=== PATIENT | male | born 1965 | race Caucasian/White ===

== ENCOUNTER 2018-04-26 11:15 | Day surgery (SDC) | payer BC ==
[2018-04-26] VITALS (10 sets, daily range): BP systolic 122–137; BP diastolic 82–91
[~2018-04-26] VITALS: Ht 182.9 cm; Wt 104.3 kg
--- NOTE | 2018-04-26 07:16 | Pre-Procedure Note/Attestation ---
Pre-Procedure Note/Attestation Complete Prior to Procedure Planned Procedure: right Procedure Narrative: knee arthroscopy medial menisectomy Indications for Procedure Pre-Operative Diagnosis: right knee medial meiscus tear Attestation I attest that I discussed the nature of the procedure; its benefits; risks and complications; and alternatives (and the risks and benefits of such alternatives ), prior to the procedure, with the patient (or the patient's legal shipping services sales representative). I attest that, if there was a reasonable possibility of needing a blood transfusion, the patient (or the patient's legal shipping services sales representative) was given the [facility] standardized written summary, pursuant to the [place] Blood Safety Act ([place] Health and Safety Code # 1645, as amended). I attest that I re-evaluated the patient just prior to the surgery and that there has been no change in the patient's H&P, except as documented below: Jacky Banks MD Apr 26, 2018 07:16
--- NOTE | 2018-04-26 07:16 | Operative Note - PDOC ---
Operative Note Operative Note Pre-op Diagnosis: right knee medial meiscus tear Procedure: see op report Post-op Diagnosis: same as pre-op plus Operative Findings: consistent w/pre-op dx studies Anesthesia: general Specimen: none Complications: none Condition: stable Estimated Blood Loss: none Implant(s) used?: No Jacky Banks MD Apr 26, 2018 07:16
[~2018-04-26 11:15] MED LIST: ALLEGRA-D 24 H1 EACH PO; ALLOPURINOL100 M1 ORAL; D5 1/2NS 1,000 ML IV SCH; HYDROmorphone 1mg/ml Carpuject SUBQ PRN; Norco 5mg/325mg tab ORAL PRN; Tylenol #3 tab (300mg/30mg) ORAL PRN; ceFAZolin 1gm in D5W 55ml IVP ONE; celeBREX 200mg Cap **SURGERY PATIENTS ONLY ORAL ONE; oxyCONTIN 20mg tab ORAL ONE
[2018-04-26] MEDS ORDERED: OXYCODONE-ACET1 EAC5 ORAL (11:37)
[2018-04-26] MEDS ORDERED: COLCRYS0.6 M1 PO (11:38)
[2018-04-26] MEDS ORDERED: tylenol PM PO (11:39)
[2018-04-26] MEDS ORDERED: oxyCONTIN 20mg tab ORAL ONE (11:55)
[2018-04-26] MEDS ORDERED: celeBREX 200mg Cap **SURGERY PATIENTS ONLY ORAL ONE (11:55)
[2018-04-26] MEDS ORDERED: Kenalog-40 1ml Vial ONE (12:35)
[2018-04-26] MEDS ORDERED: EPINEPHrine 1mg/1ml Amp ONE (12:35)
[2018-04-26] MEDS ORDERED: Morphine Sulfate PF 10 ML ONE (12:35)
[2018-04-26] MEDS ORDERED: Lidocaine 1% 10mg/ml/Epi 0.005mg/ml 30ml vial INJ ONE (12:36)
[2018-04-26] MEDS ORDERED: Bupivacaine w/Epi 0.25% 30ml Vial INJ ONE (12:36)
[2018-04-26] MEDS ORDERED: Ketorolac 30mg Inj ONE (12:36)
[2018-04-26] MEDS ORDERED: fentaNYL 100 mcg/2 mL IV ONE (12:48)
[2018-04-26] MEDS ORDERED: LR 1000ml ONE (13:00)
[2018-04-26] MEDS ORDERED: NS Irrig 4000ml IRRIG ONE (13:00)
[2018-04-26] MEDS ORDERED: Propofol 200mg/20ml IV ONE (13:20)
[2018-04-26] MEDS ORDERED: Lidocaine 1% MPF 10mg/ml 5ml ONE (13:20)
[2018-04-26] MEDS ORDERED: Metoclopramide 10mg/2ml Inj ONE (13:20)
[2018-04-26] MEDS: Bupivacaine 0.5% Inj 30 ml vial INJ ONE ×2 (13:26→13:27)
[2018-04-26] MEDS ORDERED: Ketorolac 30mg Inj IV PRN (13:45)
[2018-04-26] MEDS ORDERED: Metoclopramide 10mg/2ml Inj IVP PRN (13:45)
[2018-04-26] MEDS ORDERED: fentaNYL 100 mcg/2 mL IV PRN (13:45)
--- NOTE | 2018-04-26 13:46 | Immediate Post-Op Evaluation ---
Immediate Post-Op Evalulation Immediate Post-Op Evalulation Procedure: right knee arthroscopy Date of Evaluation: Apr 26, 2018 Time of Evaluation: 13:45 IV Fluids: 500 Blood Pressure Systolic: 129 Blood Pressure Diastolic: 86 Pulse Rate: 52 Respiratory Rate: 01 O2 Sat by Pulse Oximetry: 98 Temperature (Fahrenheit): 97.8 Nausea: No Vomiting: No Complications none Patient Status: awake, reacts, patent Hydration Status: adequate Drug: ancef Given Within 1 Hr of Incision: Yes Time Given: 13:00 Xuan Malik CRNA Apr 26, 2018 13:46
--- NOTE | 2018-04-26 13:49 | Anethesia Preoperative Eval ---
Anesthesia Pre-op PMH/ROS General Date of Evaluation: Apr 26, 2018 Time of Evaluation: 12:50 Anesthesiologist: verna ASA Score: ASA 2 Mallampati Score Class I : Soft palate, uvula, fauces, pillars visible Class II: Soft palate, uvula, fauces visible Class III: Soft palate, base of uvula visible Class IV: Only hard plate visible Mallampati Classification: Class III Surgeon: maycol Diagnosis: right knee pain Surgical Procedure: right knee arthroscopy Anesthesia History: none Family History: no anesthesia problems Allergies: Uncoded Allergies: HAYFEVER (Allergy, Mild, 04/25/18) SNEEZING,RUNNY EYES,WHEEZING Medications: see eMAR Past Medical History Pulmonary: Denies: asthma, COPD, HEAVENLY, other Gastrointestinal/Genitourinary: Denies: GERD, CRI, ESRD, other Neurologic/Psychiatric: Denies: dementia, CVA, depression/anxiety, TIA, other Endocrine: Denies: DM, hypothyroidism, steroids, other HEENT: Denies: cataract (L), cataract (R), glaucoma, [place] (L), [place] (R), other Hematology/Immune: Denies: anemia, DVT, bleeding disorder, other Other: obesity PMH Narrative: allergies PSxH Narrative: tonsillectomy Anesthesia Pre-op Phys. Exam Physician Exam Last Vital Signs Date Time Temp Pulse Resp B/P (MAP) Pulse Ox O2 Delivery O2 Flow Rate FiO2 04/26/18 12:06 Room Air 04/26/18 11:41 97.0 82 20 134/86 (102) 97 97.0 Constitutional: NAD Neurologic: CN 2-12 intact Cardiovascular: RRR Respiratory: CTA Gastrointestinal: S/NT/ND Airway Exam Mallampati Classification 3 Mallampati Score: Class III MO: full Neck: thick TMD: 1fb ROM: full Dentures: no upper, no lower Anesthesia Pre-op A/P Studies Pre-op Studies: EKG - sr Risk Assessment & Plan Plan: general LMA Pre-Antibiotics Drug: ancef Given Within 1 Hr of Incision: Yes Time Given: 12:55 Xuan Malik CRNA Apr 26, 2018 13:49
--- NOTE | 2018-04-26 14:27 | 48 Hour Post Anesthesia Eval ---
Post Anesthesia Evaluation Procedure: right knee arthroscopy Date of Evaluation: Apr 26, 2018 Time of Evaluation: 14:26 Blood Pressure Systolic: 122 0: 65 Pulse Rate: 70 O2 Sat by Pulse Oximetry: 100 Airway: patent Nausea: No Vomiting: No Hydration Status: adequate Cardiopulmonary Status: stable Mental Status/LOC: patient returned to baseline Follow-up Care/Observations: na Post-Anesthesia Complications: none Follow-up care needed: N/A Xuan Malik CRNA Apr 26, 2018 14:27
--- NOTE | 2018-04-26 22:30 | Operative Note - Dictated ---
DATE OF OPERATION: 04/26/2018 PREOPERATIVE DIAGNOSES: 1. Right knee medial meniscus tear. 2. Right knee medial collateral ligament sprain. POSTOPERATIVE DIAGNOSES: 1. Right knee medial meniscus tear. 2. Right knee medial collateral ligament sprain. 3. Grade 2 chondral damage, medial femoral condyle. PROCEDURES: 1. Right knee arthroscopic partial medial meniscectomy. 2. Right knee synovectomy of the lateral and patellofemoral compartment. SURGEON: Jacky Banks M.D. ANESTHESIA: MAC. INDICATION FOR PROCEDURE: The patient is a pleasant 53-year-old gentleman who presented with complaints of right knee pain after a fall. He had significant pain on the medial collateral ligament. He was diagnosed with MCL sprain and still had some difficulty bearing weight. Therefore, he had an MRI which showed a complex tear of posterior horn of medial meniscus. Given that he was having difficulty bearing weight and difficulty with ambulation, therefore he elected to undergo right knee arthroscopy and medial meniscectomy. Risks, limitations, expectations, and complications of procedure were discussed in detail. All questions were addressed. DESCRIPTION OF PROCEDURE: After informed consent was obtained, the patient was brought to the operating room. The patient was placed supine under general anesthesia. The right leg was prepped and draped in sterile manner. Ancef was administered. Time-out was performed. Exam under anesthesia showed good stability to valgus stressing in full extension, 10 degrees of flexion, 90 degrees of flexion. Portal sites were injected with 0.25% Marcaine with epinephrine. Esmarch was used to exsanguinate the extremity. Inferolateral stab incision was then made. Trocar was introduced into the knee joint. There was significant hypertrophic fat pad and synovial tissue in the patellofemoral compartment. Medial compartment was entered. There was grade 3 chondral damage of medial femoral condyle. A medial working portal was established. There was a degenerative tear of posterior horn of medial meniscus. Partial meniscectomy using combination of biters and loraine was performed. Once that was completed, the area of chondral damage was assessed for any chondral flaps, which was not evident. Excision of fat pad and synovectomy was performed in the intercondylar notch and lateral compartment. ACL was probed and noted to be intact. Lateral compartment was entered and was free from meniscal or chondral damage. The camera was then placed in the patellofemoral compartment. Excision of the fat pad and synovial tissue was completed. The instruments were removed. Portal sites were closed with 3-0 Monocryl sutures. Steri-Strips and a sterile dressing were applied. The patient was awoken and taken to recovery room with stable vital signs. ESTIMATED BLOOD LOSS: None. COMPLICATIONS: None. SPECIMENS: None. IMPLANTS: None. Jacky Banks M.D. DR: CL JOB#: [id number] CC:
== END 2018-04-26 15:25 | disposition home or self-care (01) ==
LOC: SUR 11:15
DX: M23.221 Derangement of posterior horn of medial meniscus due to old tear or injury, right knee (principal); S83.411A Sprain of medial collateral ligament of right knee, initial encounter; M94.8X6 Other specified disorders of cartilage, lower leg; E66.9 Obesity, unspecified; J30.1 Allergic rhinitis due to pollen
CPT/HCPCS: 29876; 29881; J0171; J0690; J1885; J2274; J2405; J2704; J2765; J3010; J3301; J3490; 94003; 94150